=== PATIENT | female | born 1955 | race Caucasian/White ===

== ENCOUNTER → 2021-11-21 | Outpatient (CLI) | payer MEDICARE ==
[2021-11-22 09:13] LABS: CREATININE, URINE 67.6 mg/dL (Not Estab.)
== END ==
LOC: US 13:30
PROVIDERS: Internal Medicine Nephrology
DX: N17.9 Acute kidney failure, unspecified (principal)
CPT/HCPCS: 36415; 80053; 81001; 82043; 82570; 84156

== ENCOUNTER → 2021-12-09 | Outpatient (CLI) | payer MEDICARE | LOC: CT 10:58 | PROVIDERS: Internal Medicine Nephrology | DX: N17.9 Acute kidney failure, unspecified (principal); R91.1 Solitary pulmonary nodule; N28.9 Disorder of kidney and ureter, unspecified | CPT/HCPCS: 36415; 74170; 80053; 81001; 82043; 82570; 84156; Q9967 ==